=== PATIENT | male | born 1985 | race Caucasian/White ===

== ENCOUNTER 2023-09-23 13:15 | Emergency (ER) | payer OTHER ==
[~2023-09-23] VITALS: Ht 182.9 cm; Wt 81.6 kg
[2023-09-23 14:08] VITALS: O2SAT 98
[2023-09-24] MEDS ORDERED: [UNRECOGNIZED DRUG - CODE] PO (16:40)
== END 2023-09-23 17:12 | disposition left against medical advice (07) ==
LOC: ER 13:15
DX: S93.492A Sprain of other ligament of left ankle, initial encounter (principal); Z79.899 Other long term (current) drug therapy; X50.1XXA Overexertion from prolonged static or awkward postures, initial encounter; Y93.89 Activity, other specified; Y92.89 Other specified places as the place of occurrence of the external cause; Y99.8 Other external cause status
CPT/HCPCS: 73610; A4606; A4663

== ENCOUNTER 2023-09-24 14:31 | Emergency (ER) | payer OTHER ==
[~2023-09-24] VITALS: Ht 182.9 cm; Wt 81.6 kg
[2023-09-24] MEDS ORDERED: [UNRECOGNIZED DRUG - CODE] PO (16:40)
[2023-09-24 17:19] VITALS: BP 140/74; O2SAT 99
== END 2023-09-24 17:20 | disposition home or self-care (01) ==
LOC: ER 14:31
DX: M24.811 Other specific joint derangements of right shoulder, not elsewhere classified (principal); M13.872 Other specified arthritis, left ankle and foot; Z79.899 Other long term (current) drug therapy; Z60.2 Problems related to living alone
CPT/HCPCS: A4606; A4663